=== PATIENT | female | born 1990 | race Caucasian/White ===

== ENCOUNTER 2016-10-10 14:21 | Emergency (ER) | payer MEDICAID ==
[~2016-10-10] VITALS: Ht 170.2 cm; Wt 66.6 kg
[2016-10-10] MEDS ORDERED: LIDOCAINE 1%, 20ML ONE (15:27)
[2016-10-10] MEDS ORDERED: LIDOCAINE 1%, 20ML SQ ONE (15:30)
[2016-10-10] MEDS ORDERED: BACITRACIN ZINC OINT 500U/GM, 0.9 GM ONE (16:22)
[2016-10-10 16:24] VITALS: BP 103/69
== END 2016-10-10 16:57 | disposition home or self-care (01) ==
LOC: ED 16:51
DX: L02.01 Cutaneous abscess of face (principal); L02.411 Cutaneous abscess of right axilla; Z88.5 Allergy status to narcotic agent
CPT/HCPCS: 10060; 87491; 87591; 99283; J3490

== ENCOUNTER 2016-10-14 18:46 | Emergency (ER) | payer MEDICAID ==
[~2016-10-14] VITALS: Ht 170.2 cm; Wt 67.6 kg
[2016-10-14 19:09] VITALS: BP 119/76
[2016-10-14] MEDS ORDERED: CEFTRIAXONE 250 MG IM ONE (20:30)
[2016-10-14] MEDS ORDERED: AZITHROMYCIN 500 MG TABLET PO ONE (20:30)
[2016-10-14] MEDS ORDERED: AZITHROMYCIN 500 MG TABLET ONE (21:00)
[2016-10-14] MEDS ORDERED: CEFTRIAXONE 250 MG ONE (21:00)
== END 2016-10-14 21:34 | disposition home or self-care (01) ==
LOC: ED 21:28
DX: A54.9 Gonococcal infection, unspecified (principal); A74.9 Chlamydial infection, unspecified
CPT/HCPCS: 96372; 99283; J0696